=== PATIENT | male | born 1985 | race Caucasian/White ===

== ENCOUNTER → 2016-10-06 | Outpatient (REF) ==
[~2016-10-06] MED LIST: ATENOLOL50 MG PO; B-12 100 MCG PO; CALCIUM CITRATE1 TA1 PO; CENTRUM CHEWAB1 EACH PO; COZAAR PO; COZAAR100 MG PO; DIABETA5 MG PO; DIOVAN320 MG PO; DOXYCYCLINE 10100 MG PO; FLINTSTONES COM1 CT1 PO; IMITREX50 MG PO; LEVAQUIN 5500 MG/TA1 PO; LEVEMIR100 U/ML SC; MULTIPLE VITAMI PO; MULTIPLE VITAMI1 CAP PO; NEURONTIN100 MG PO; NORCOELIX PO; NORVASC 5MG5 MG/TAB PO; NOVOLOG 100U100 U/M1 SC; PERCOCET 5/321 UDTAB PO; PHENERGAN 25 TA25 MG PO; PRIL40; PROTONIX 40MG T40 MG PO; TUMS500 MG PO; TYLENOL 325MG325 MG PO; VICTOZA6 MG/ML SC; VITAMIN B12500 MCG PO; VITAMIN B125000 MCG SL; VITAMIN D 1001000 IU PO; VITAMIN D 50,1.25 MG PO; ZITHROMAX 250M250 MG PO; [UNRECOGNIZED DRUG - OTHER]; [UNRECOGNIZED DRUG - OTHER]; [UNRECOGNIZED DRUG - OTHER] PO
[2016-10-06 18:19] LABS: THYROID STIMULATING HORMONE 1.02 uIU/mL (0.465-4.680)
== END ==
LOC: ZLAB.WCH 16:50
PROVIDERS: Internal Medicine
DX: Z01.89 Encounter for other specified special examinations (principal)

== ENCOUNTER → 2016-10-09 | Outpatient (CLI) | payer MEDICAID ==
[~2016-10-09] VITALS: Ht 175.3 cm; Wt 103.2 kg
[2016-10-09 14:07] VITALS: BP 130/71; PULSE 88
[2016-10-09 14:34] VITALS: BP 130/71; PULSE 88
== END ==
LOC: LIGHT
DX: Z98.84 Bariatric surgery status (principal); I10 Essential (primary) hypertension; E11.9 Type 2 diabetes mellitus without complications; E78.4 Other hyperlipidemia; E66.09 Other obesity due to excess calories; Z68.33 Body mass index [BMI] 33.0-33.9, adult

== ENCOUNTER 2016-11-11 22:28 | Emergency (ER) | payer MEDICAID ==
[~2016-11-11] VITALS: Ht 175.3 cm; Wt 104.5 kg
[~2016-11-11 22:28] MED LIST changes: -DOXYCYCLINE 10100 MG PO
[2016-11-11 23:00] LABS: BASO # 0.1 (0.0-0.2); BASO % 0.6 % (0.0-2.0); EOS # 0.1 (0.0-0.7); EOS % 0.6 % (0-4.0); GRAN # 5.5 (1.4-6.5); GRAN % 66.6 % (42.2-75.2); HEMATOCRIT 45.1 % (42.0-52.0); HEMOGLOBIN 14.8 g/dl (13.5-18.0); LYMPH % 23.9 % (20.0-51.0); MEAN CELL VOLUME 87 fl (80.0-100.0); MEAN CORPUSCULAR HEMOGLOBIN 29 pg (27.0-31.0); MEAN CORPUSCULAR HGB CONC 33 g/dl (33.0-37.0); MEAN PLATELET VOLUME 10.1 fl (7.4-10.4); MONO # 0.7 (0.1-0.6); MONO % 7.9 % (1.7-9.3); PLATELET COUNT 302 K/mm3 (130-400); RED BLOOD COUNT 5.18 M/mm3 (4.20-5.60); REDCELL DISTRIBUTION WIDTH-CV 12.5 % (11.5-14.5); WHITE BLOOD COUNT 8.2 K/mm3 (4.8-10.8)
[2016-11-11 23:12] LABS: ADJUSTED CALCIUM 9.3 mg/dL (8.4-10.2); ALANINE AMINOTRANSFERASE 40 U/L (21-72); ALBUMIN 4.4 gm/dL (3.5-5.0); ALKALINE PHOSPHATASE 89 U/L (50-136); ANION GAP 14 mmol/L (7-16); BILIRUBIN,TOTAL 0.6 mg/dL (0.0-1.0); BLOOD UREA NITROGEN 19 mg/dL (9-20); CALCIUM 9.6 mg/dL (8.4-10.2); CARBON DIOXIDE 29 mmol/L (22-30); CHLORIDE 98 mmol/L (98-107); CREATININE, serum 0.85 mg/dL (0.66-1.25); GLUCOSE 222 mg/dL (74-106); LIPASE 142 U/L (23-300); POTASSIUM 3.7 mmol/L (3.4-5.0); SODIUM 140 mmol/L (137-145); TOTAL PROTEIN 7.9 gm/dL (6.4-8.2)
[2016-11-11 23:22] LABS: INR 1.1 (0.8-3.0); PROTHROMBIN TIME 12.2 SECONDS (9.7-12.8)
[2016-11-11 23:26] LABS: TROPONIN-I < 0.012 ng/mL (0.000-0.034)
[2016-11-12 00:17] VITALS: BP 132/81; PULSE 75
== END 2016-11-12 00:18 | disposition home or self-care (01) ==
LOC: COL.ER 22:28
PROVIDERS: Emergency Medicine
DX: R07.9 Chest pain, unspecified (principal); I10 Essential (primary) hypertension; E11.9 Type 2 diabetes mellitus without complications; E78.5 Hyperlipidemia, unspecified; K21.9 Gastro-esophageal reflux disease without esophagitis; F17.210 Nicotine dependence, cigarettes, uncomplicated

== ENCOUNTER 2016-11-30 11:15 | Outpatient (RCR) | payer MEDICAID | END 2016-12-15 10:33 | disposition home or self-care (01) | LOC: WSPT 11:15 | DX: M25.562 Pain in left knee (principal) ==

== ENCOUNTER 2017-04-21 13:58 | Emergency (ER) | payer MEDICAID ==
[~2017-04-21] VITALS: Ht 175.3 cm; Wt 106.8 kg
[2017-04-21 14:04] VITALS: BP 132/85; TEMP 98.2
[2017-04-21] MEDS ORDERED: DOXYCYCLINE 10100 MG PO (16:34)
[2017-04-21 16:45] VITALS: PULSE 90
== END 2017-04-21 16:46 | disposition home or self-care (01) ==
LOC: COL.ER 13:58
DX: R51 Headache (principal); G40.909 Epilepsy, unspecified, not intractable, without status epilepticus; K21.9 Gastro-esophageal reflux disease without esophagitis; F17.210 Nicotine dependence, cigarettes, uncomplicated; Z82.3 Family history of stroke

== ENCOUNTER → 2017-05-18 | Outpatient (REF) ==
[~2017-05-18] MED LIST changes: +DOXYCYCLINE 10100 MG PO
== END ==
LOC: ZLAB.WCH 18:06
DX: Z01.89 Encounter for other specified special examinations (principal)

== ENCOUNTER → 2017-10-11 | Outpatient (CLI) | payer MEDICAID ==
[~2017-10-11] VITALS: Ht 175.3 cm; Wt 105.5 kg
[~2017-10-11] MED LIST changes: +ULTRAM 50MG TAB50 MG PO
[2017-10-11 09:06] VITALS: BP 130/82; PULSE 68
== END ==
LOC: LIGHT 08:41
DX: Z98.84 Bariatric surgery status (principal); Z68.34 Body mass index [BMI] 34.0-34.9, adult; Z71.3 Dietary counseling and surveillance
CPT/HCPCS: G0463

== ENCOUNTER → 2017-11-16 | Outpatient (REF) ==
[2017-11-16 18:47] LABS: THYROID STIMULATING HORMONE 2.1 uIU/mL (0.465-4.680)
== END ==
LOC: ZLAB.WCH 17:53
PROVIDERS: Internal Medicine
DX: Z01.89 Encounter for other specified special examinations (principal)

== ENCOUNTER → 2018-04-11 | Outpatient (CLI) | payer MEDICAID ==
[~2018-04-11] VITALS: Ht 175.3 cm; Wt 109.8 kg
[~2018-04-11] MED LIST changes: -NEURONTIN100 MG PO; +NEURONTIN300 MG/CAP PO
[2018-04-11 11:36] VITALS: BP 120/56; PULSE 92
== END ==
LOC: LIGHT 10:40
DX: Z98.84 Bariatric surgery status (principal); E66.9 Obesity, unspecified; Z68.35 Body mass index [BMI] 35.0-35.9, adult; Z71.3 Dietary counseling and surveillance
CPT/HCPCS: G0463

== ENCOUNTER → 2018-06-13 | Outpatient (CLI) | payer MEDICAID ==
[~2018-06-13] VITALS: Ht 175.3 cm; Wt 111.1 kg
[2018-06-13 09:01] VITALS: BP 140/70; PULSE 72
== END ==
LOC: LIGHT 08:52
DX: Z98.84 Bariatric surgery status (principal); E66.01 Morbid (severe) obesity due to excess calories; Z68.36 Body mass index [BMI] 36.0-36.9, adult; Z71.3 Dietary counseling and surveillance
CPT/HCPCS: G0463

== ENCOUNTER → 2018-06-14 | Outpatient (REF) | LOC: ZLAB.WCH 18:20 | DX: Z01.89 Encounter for other specified special examinations (principal) ==

== ENCOUNTER → 2018-08-15 | Outpatient (CLI) | payer MEDICAID ==
[~2018-08-15] VITALS: Ht 175.3 cm; Wt 109.5 kg
== END ==
LOC: LIGHT 14:23
DX: Z98.84 Bariatric surgery status (principal); Z71.3 Dietary counseling and surveillance
CPT/HCPCS: G0463

== ENCOUNTER → 2018-09-16 | Outpatient (REF) | LOC: ZLAB.WCH 15:10 | DX: Z01.89 Encounter for other specified special examinations (principal) ==

== ENCOUNTER → 2018-10-03 | Outpatient (CLI) | payer MEDICAID ==
[~2018-10-03] VITALS: Ht 175.3 cm; Wt 111.1 kg
[2018-10-03 10:53] VITALS: BP 128/88; PULSE 72
== END ==
LOC: LIGHT 10:14
DX: Z98.84 Bariatric surgery status (principal); Z68.36 Body mass index [BMI] 36.0-36.9, adult; Z71.3 Dietary counseling and surveillance
CPT/HCPCS: G0463

== ENCOUNTER → 2018-11-28 | Outpatient (CLI) | payer MEDICAID ==
[~2018-11-28] VITALS: Ht 175.3 cm; Wt 112.7 kg
[2018-11-28 13:16] VITALS: BP 130/60; PULSE 80
== END ==
LOC: LIGHT 10:47
DX: Z98.84 Bariatric surgery status (principal); Z68.36 Body mass index [BMI] 36.0-36.9, adult; Z71.3 Dietary counseling and surveillance
CPT/HCPCS: G0463

== ENCOUNTER → 2018-12-16 | Outpatient (REF) | LOC: ZLAB.WCH 15:27 | DX: Z01.89 Encounter for other specified special examinations (principal) ==

== ENCOUNTER 2019-02-10 13:31 | Emergency (ER) | payer MEDICAID ==
[~2019-02-10] VITALS: Ht 175.3 cm; Wt 110.0 kg
[2019-02-10 13:47] VITALS: BP 152/82; TEMP 97.4
[2019-02-10] MEDS ORDERED: TYLENOL 500MG500 MG PO (14:59)
[2019-02-10] MEDS ORDERED: REVATIO20 MG PO (15:00)
[2019-02-10 15:15] VITALS: PULSE 80
== END 2019-02-10 15:20 | disposition home or self-care (01) ==
LOC: COL.ER 13:31
DX: M25.562 Pain in left knee (principal); E11.9 Type 2 diabetes mellitus without complications; F17.210 Nicotine dependence, cigarettes, uncomplicated; Z98.84 Bariatric surgery status

== ENCOUNTER → 2019-02-27 | Outpatient (CLI) | payer MEDICAID ==
[~2019-02-27] VITALS: Ht 175.3 cm; Wt 108.9 kg
[~2019-02-27] MED LIST changes: +REVATIO20 MG PO; +TYLENOL 500MG500 MG PO
[2019-02-27 09:29] VITALS: BP 130/76; PULSE 80
== END ==
LOC: LIGHT
DX: Z98.84 Bariatric surgery status (principal); Z68.35 Body mass index [BMI] 35.0-35.9, adult; Z71.3 Dietary counseling and surveillance
CPT/HCPCS: G0463

== ENCOUNTER → 2019-04-10 | Outpatient (CLI) | payer MEDICAID ==
[~2019-04-10] VITALS: Ht 175.3 cm; Wt 108.2 kg
[2019-04-10 11:22] VITALS: BP 146/60; PULSE 84
== END ==
LOC: LIGHT 11:06
DX: Z98.84 Bariatric surgery status (principal); E66.9 Obesity, unspecified; Z68.35 Body mass index [BMI] 35.0-35.9, adult; Z71.3 Dietary counseling and surveillance
CPT/HCPCS: G0463

== ENCOUNTER 2019-04-28 09:15 | Outpatient (RCR) | payer MEDICAID | END 2019-05-09 17:00 | disposition home or self-care (01) | LOC: WSPT 09:15 | DX: M17.12 Unilateral primary osteoarthritis, left knee (principal) ==

== ENCOUNTER → 2019-05-08 | Outpatient (CLI) | payer MEDICAID ==
[~2019-05-08] VITALS: Ht 175.3 cm; Wt 108.6 kg
[2019-05-08 11:02] VITALS: BP 146/64; PULSE 60
== END ==
LOC: LIGHT 09:24
DX: Z98.84 Bariatric surgery status (principal); E66.01 Morbid (severe) obesity due to excess calories; Z68.35 Body mass index [BMI] 35.0-35.9, adult; Z71.3 Dietary counseling and surveillance
CPT/HCPCS: G0463

== ENCOUNTER → 2019-06-12 | Outpatient (CLI) | payer MEDICAID ==
[~2019-06-12] VITALS: Ht 175.3 cm; Wt 109.1 kg
[2019-06-12 10:52] VITALS: BP 128/72; PULSE 60
== END ==
LOC: LIGHT 10:26
DX: Z98.84 Bariatric surgery status (principal); E66.9 Obesity, unspecified; Z68.35 Body mass index [BMI] 35.0-35.9, adult; Z71.3 Dietary counseling and surveillance
CPT/HCPCS: G0463

== ENCOUNTER → 2019-07-17 | Outpatient (CLI) | payer MEDICAID ==
[~2019-07-17] VITALS: Ht 175.3 cm; Wt 110.2 kg
[2019-07-17 11:17] VITALS: BP 124/78; PULSE 80
== END ==
LOC: LIGHT 10:48
DX: Z98.84 Bariatric surgery status (principal); E66.01 Morbid (severe) obesity due to excess calories; Z68.35 Body mass index [BMI] 35.0-35.9, adult; Z71.3 Dietary counseling and surveillance
CPT/HCPCS: G0463

== ENCOUNTER → 2019-10-02 | Outpatient (CLI) | payer MEDICAID ==
[~2019-10-02] VITALS: Ht 175.3 cm; Wt 111.8 kg
[~2019-10-02] MED LIST changes: +FASTIN30 MG PO
[2019-10-02 11:17] VITALS: BP 100/58; PULSE 68
== END ==
LOC: LIGHT 10:54
DX: Z68.36 Body mass index [BMI] 36.0-36.9, adult (principal); Z98.84 Bariatric surgery status
CPT/HCPCS: G0463

== ENCOUNTER 2019-10-28 15:49 | Emergency (ER) | payer MEDICAID ==
[~2019-10-28] VITALS: Ht 175.3 cm; Wt 111.4 kg
[2019-10-28 16:11] VITALS: BP 139/90; TEMP 97.7
[2019-10-28 18:00] VITALS: PULSE 70
== END 2019-10-28 18:00 | disposition home or self-care (01) ==
LOC: COL.ER 15:49
DX: S00.33XA Contusion of nose, initial encounter (principal); W21.05XA Struck by basketball, initial encounter; Y92.310 Basketball court as the place of occurrence of the external cause; Y93.67 Activity, basketball

== ENCOUNTER → 2020-02-12 | Outpatient (CLI) | payer MEDICAID ==
[~2020-02-12] VITALS: Ht 175.3 cm; Wt 114.3 kg
[~2020-02-12] MED LIST changes: +PHENTERMINE15 MG PO
[2020-02-12 13:52] VITALS: BP 132/60; PULSE 90
== END ==
LOC: LIGHT 11-13 11:39
DX: E66.8 Other obesity (principal); Z68.37 Body mass index [BMI] 37.0-37.9, adult; Z98.84 Bariatric surgery status
CPT/HCPCS: G0463

== ENCOUNTER → 2020-03-18 | Outpatient (CLI) | payer MEDICAID ==
[~2020-03-18] VITALS: Ht 175.3 cm; Wt 112.3 kg
[2020-03-18 15:02] VITALS: BP 130/70; PULSE 88
== END ==
LOC: LIGHT 11:37
DX: E66.8 Other obesity (principal); Z68.36 Body mass index [BMI] 36.0-36.9, adult; Z98.84 Bariatric surgery status; K21.9 Gastro-esophageal reflux disease without esophagitis
CPT/HCPCS: G0463

== ENCOUNTER → 2020-04-22 | Outpatient (CLI) | payer MEDICAID ==
[~2020-04-22] VITALS: Ht 175.3 cm; Wt 111.1 kg
[2020-04-22 13:33] VITALS: BP 126/66; PULSE 84
== END ==
LOC: LIGHT 13:23
DX: E66.8 Other obesity (principal); Z68.36 Body mass index [BMI] 36.0-36.9, adult; Z98.84 Bariatric surgery status
CPT/HCPCS: G0463

== ENCOUNTER 2020-04-28 21:35 | Emergency (ER) | payer MEDICAID ==
[~2020-04-28] VITALS: Ht 175.3 cm; Wt 111.4 kg
[2020-04-28 21:51] VITALS: TEMP 98.2
[2020-04-29 03:01] VITALS: BP 123/68; PULSE 67
== END 2020-04-29 03:03 | disposition home or self-care (01) ==
LOC: COL.ER 21:35
DX: G43.909 Migraine, unspecified, not intractable, without status migrainosus (principal); E11.9 Type 2 diabetes mellitus without complications; F17.210 Nicotine dependence, cigarettes, uncomplicated; Z98.84 Bariatric surgery status; Z90.49 Acquired absence of other specified parts of digestive tract; Z88.0 Allergy status to penicillin; Z88.2 Allergy status to sulfonamides; Z88.8 Allergy status to other drugs, medicaments and biological substances; Z88.6 Allergy status to analgesic agent; Z86.69 Personal history of other diseases of the nervous system and sense organs
CPT/HCPCS: J0595; J1200; J2765; J7030

== ENCOUNTER → 2020-06-17 | Outpatient (CLI) | payer MEDICAID ==
[~2020-06-17] VITALS: Ht 175.3 cm; Wt 110.4 kg
[2020-06-17 13:39] VITALS: BP 126/74; PULSE 84
== END ==
LOC: LIGHT 13:30
DX: E66.8 Other obesity (principal); Z68.36 Body mass index [BMI] 36.0-36.9, adult; Z98.84 Bariatric surgery status; K21.9 Gastro-esophageal reflux disease without esophagitis
CPT/HCPCS: G0463